=== PATIENT | female | born 1975 | race Caucasian/White ===

== ENCOUNTER 2019-07-04 15:38 | Inpatient (IN) | payer OTHER ==
[~2019-07-04] VITALS: Ht 170.2 cm; Wt 90.7 kg
[2019-07-04 15:43] VITALS: BP_SYST 143
--- NOTE | 2019-07-04 15:51 | NUR ---
Patient to ER bed 03 to gown for evaluation. Side rails up.
--- NOTE | 2019-07-04 15:55 | NUR ---
patient AOx4 with c/o dizziness, patient states she feels lightheaded/numbness to extremities upon standing since 10:30 this morning. patient denies recent fall, n/v/d/FERNANDEZ of any kind. patient states she smokes x1 pack a day. patient denies any other drugs at this time. patient has equal ekaterina strangth to all extremities. no slurred speech of any kind. no other complaint or injury at this time.
--- NOTE | 2019-07-04 16:05 | NUR ---
ER at bedside examining patient.
[2019-07-04] MEDS ORDERED: ASPIRIN 81 MG TAB.CHEW PO ONE (16:15)
[2019-07-04] MEDS ORDERED: NACL 0.9% 1,000 ML IV ONE (16:15)
[2019-07-04] MEDS ORDERED: MECLIZINE HCL 25 MG TABLET (ANITVERT) PO ONE (16:15)
--- NOTE | 2019-07-04 16:24 | NUR ---
Yovani mosscheyenne in [facility] - 07/04/19 at 1624 by [email or web address] patient is othostatic positive
--- NOTE | 2019-07-04 16:24 | NUR ---
orthostatic bp positive.
--- NOTE | 2019-07-04 16:29 | NUR ---
patient sent to CT
[2019-07-04 16:38] LABS: BASOPHILS # (AUTO) 0.1 K/uL (0.0-0.2); BASOPHILS % (AUTO) 0.3 % (0.0-2.0); EOSINOPHILS # (AUTO) 0.1 K/uL (0.0-0.4); EOSINOPHILS % (AUTO) 0.7 % (0.0-4.0); HEMATOCRIT 34.7 % (36-48); HEMOGLOBIN 10.7 g/dL (12.0-16.0); LYMPHOCYTES # (AUTO) 2.5 K/uL (1.0-5.5); LYMPHOCYTES % (AUTO) 14.8 % (20.5-51.5); MEAN CORPUSCULAR HEMOGLOBIN 22 pg (27-31); MEAN CORPUSCULAR HGB CONC 31 % (32-36); MEAN CORPUSCULAR VOLUME 71 fL (79.0-98.0); MONOCYTES # (AUTO) 0.7 K/uL (0.0-1.0); MONOCYTES % (AUTO) 4.1 % (1.7-9.3); NEUTROPHILS # (AUTO) 13.7 K/uL (1.8-7.7); NEUTROPHILS % (AUTO) 80.1 % (40.0-70.0); PLATELET COUNT (AUTO) 358 K/uL (130-430); RED BLOOD CELL COUNT(AUTO) 4.92 MIL/uL (4.2-6.2); RED CELL DISTRIBUTION WIDTH 19.5 % (9.0-15.0); WHITE BLOOD COUNT (AUTO) 17.1 K/uL (4.8-10.8)
[2019-07-04 16:44] LABS: ANION GAP 17 (5-15); CALCIUM 9.4 mg/dL (8.4-11.0); CHLORIDE 104 mmol/L (98-107); GFR AFRICAN AMERICAN 101 mL/min (>90); GLUCOSE 102 mg/dL (70-99); POTASSIUM 3.5 mmol/L (3.5-5.1); SODIUM SERUM 141 mmol/L (136-145); UREA NITROGEN, BLOOD 5 mg/dL (8-21)
[2019-07-04 16:49] LABS: ALANINE AMINOTRANSFERASE 26 U/L (12-78); ALBUMIN 4.1 g/dL (3.4-4.8); ALCOHOL, BLOOD 51 mg/dL (<10); ASPARTATE AMINOTRANSFERASE 23 U/L (10-37); TOTAL BILIRUBIN 0.3 mg/dL (0.0-1.0)
--- NOTE | 2019-07-04 17:00 | NUR ---
patient returned from CT in stable condition.
--- NOTE | 2019-07-04 17:00 | NUR ---
Medicated per MD orders. IVF infusing with no s/s of infiltration at this time. Will cont to monitor# 18 gauge angiocath placed to LAC. Use of asceptic technique. Opsite placed over site. Blood return noted. Blood for lab drawn from site. Flushed with 10 cc of normal saline. No evidence of infiltration noted. Patient tolerated well.
[2019-07-04 17:06] LABS: ACETAMINOPHEN < 1 ug/mL (1-30)
[2019-07-04 17:06] LABS: BILIRUBIN,URINE NEGATIVE (NEGATIVE); BLOOD, URINE 1+ (NEGATIVE); CLARITY/URINE CLEAR (CLEAR); COLOR,URINE YELLOW (YELLOW); GLUCOSE,URINE NEGATIVE (NEGATIVE); KETONES,URINE NEGATIVE (NEGATIVE); LEUKOCYTE ESTERASE ,URINE NEGATIVE (NEGATIVE); NITRITE, URINE NEGATIVE (NEGATIVE); PROTEIN URINE NEGATIVE (NEGATIVE); UROBILINOGEN,URINE 0.2 (0.2-1.0)
[2019-07-04] MEDS ORDERED: NACL 0.9% 2,000 ML IV ONE (17:15)
[2019-07-04] MEDS ORDERED: PIPERACILLIN/TAZO 3.375 GM in NS 50 ML IV ONE (17:15)
[2019-07-04 17:16] LABS: URINE AMPHETAMINE POSITIVE (NEG <=500)
[2019-07-04 17:17] LABS: BARBITURATE, URINE NEGATIVE (NEG <=200); BENZODIAZEPINE, URINE NEGATIVE (NEG <=150); CANNABINOID, URINE NEGATIVE (NEG <=50); COCAINE, URINE NEGATIVE (NEG <=150); METHAMPHETAMINES SCREEN,URINE POSITIVE (NEG <=500); OPIATE, URINE NEGATIVE (NEG <=100); PHENCYCLIDINE SCREEN,URINE NEGATIVE (NEG <=25); UR TRICYCLIC ANTIDEPRESSANTS NEGATIVE (NEG <=300); URINE METHADONE NEGATIVE (NEG <=200); URINE OXYCODONE SCREEN NEGATIVE (NEG <=100); URINE PROPOXYPHENE SCREEN NEGATIVE (NEG <=300)
[2019-07-04 17:22] LABS: BACTERIA,URINE FEW /HPF (None Seen); WBC,URINE NONE SEEN /HPF (0-3)
[2019-07-04 17:23] LABS: MUCUS,URINE None Seen /LPF (None Seen)
[2019-07-04] MEDS ORDERED: ONDANSETRON HCL 4 MG/2 ML VIAL IVP PRN (17:30)
[2019-07-04] MEDS ORDERED: PIPERACILLIN/TAZOBACTAM 3.375 GM/VIAL (ZOSYN) IV ONE (17:31)
--- NOTE | 2019-07-04 17:35 | NUR ---
patient denies taking medication
--- NOTE | 2019-07-04 17:47 | NUR ---
ADMISSION NOTE Received patient from ER via [facility], received report from Elma MITTAL. Patient admitted with diagnosis of ORTHOSTATIC HYPOTENSION/DEHYDRATION. Patient oriented to hospital routine, call light, toileting and safety-patient verbalized understanding.
[2019-07-04 17:56] LABS: AMYLASE 61 U/L (0-100); LIPASE 172 U/L (73-393)
--- NOTE | 2019-07-04 17:56 | NUR ---
Patient will be admitted to care of [facility]. Admitted to tele unit. Will go to room 117A. Belongings list completed. Summary report printed. Report will be given at bedside.
[2019-07-04] MEDS: ACETAMINOPHEN 325 MG TABLET PO PRN (18:07)
[2019-07-04 18:08] VITALS: BP_SYST 155
--- NOTE | 2019-07-04 18:51 | NUR ---
CLOSING NOTES: PATIENT AWAKE IN BED. ALERT AND ORIENTED x4 AND VERBAL. FAMILY AT BEDSIDE. NO SIGNS OF DISTRESS OR SHORTNESS OF BREATH NOTED. PATIENT IS TOLERATING OXYGEN AT ROOM AIR. SAFETY AND FALL PRECAUTIONS ARE IN PLACE. BED LOCKED IN LOWEST POSITION WITH CALL LIGHT IN REACH. WILL ENDORSE PATIENT TO ONCOMING JOB PUTTER UP AND TICKET PREPARER NURSE.
[2019-07-04 20:24] LABS: HCG,QUAL RESULT NEGATIVE (NEGATIVE)
[2019-07-04] MEDS ORDERED: FOLIC ACID 1 MG, THIAMINE HCL 100 MG, MAGNESIUM SULFATE 1 GM, MVI 10 ML in NACL 0.9% 1,... IV SCH (20:45)
[2019-07-04 20:50] VITALS: BP_SYST 137
[2019-07-04] MEDS ORDERED: MULTIVITAMINS TAB 1 TABLET PO SCH (21:00)
[2019-07-04] MEDS: LORazepam 1 MG TABLET PO SCH (21:27)
[2019-07-04] MEDS ORDERED: cefTRIAXone 1 GM IVPB PREMIX 50 ML IV ONE (21:40)
[2019-07-04] MEDS: cefTRIAXone 1 GM IVPB PREMIX 50 ML IV SCH (21:49)
--- NOTE | 2019-07-04 23:15 | NUR ---
ZOFRAN 4 MG IVP administer for general NAUSEA & HELPFUL .
--- NOTE | 2019-07-04 23:45 | NUR ---
LORAZEPAM 1 MG PO administer as ordered for anxiety & helpful .
--- NOTE | 2019-07-05 | NUR ---
TYLENOL 650 MG PO administer for general pain 01/03 & helpful , patient Resting .
[2019-07-05 00:28] VITALS: BP_SYST 140
[2019-07-05] MEDS: ACETAMINOPHEN 325 MG TABLET PO PRN ×3 (00:43→22:22)
--- NOTE | 2019-07-05 04:45 | NUR ---
Hourly Rounding patient Resting HOB elevated verbally Responsive friend at the bedside chest movement symmetrical call patel with patient .
--- NOTE | 2019-07-05 04:50 | NUR ---
Patient ambulates with steady gait BRP did urinate as needed , back to bed no SOB call patel with patient activity tolerated .
--- NOTE | 2019-07-05 04:51 | NUR ---
ROCEPHIN 1 GM IVPB administer as ordered no s/sx of ALLERGIC reaction noted skin Rash Free dry also warm .
[2019-07-05 05:44] LABS: BASOPHILS # (AUTO) 0.1 K/uL (0.0-0.2); BASOPHILS % (AUTO) 0.6 % (0.0-2.0); EOSINOPHILS # (AUTO) 0.4 K/uL (0.0-0.4); HEMATOCRIT 29.9 % (36-48); HEMOGLOBIN 9.2 g/dL (12.0-16.0); LYMPHOCYTES % (AUTO) 29.5 % (20.5-51.5); MEAN CORPUSCULAR HEMOGLOBIN 22 pg (27-31); MEAN CORPUSCULAR HGB CONC 31 % (32-36); MEAN CORPUSCULAR VOLUME 71 fL (79.0-98.0); MONOCYTES # (AUTO) 0.6 K/uL (0.0-1.0); MONOCYTES % (AUTO) 5.6 % (1.7-9.3); NEUTROPHILS % (AUTO) 60.3 % (40.0-70.0); PLATELET COUNT (AUTO) 285 K/uL (130-430); RED CELL DISTRIBUTION WIDTH 19.8 % (9.0-15.0)
[2019-07-05] MEDS: LORazepam 1 MG TABLET PO SCH ×3 (06:16→22:22)
--- NOTE | 2019-07-05 06:35 | NUR ---
Patient Reminded again that stool sample is needed , Hat placed in Rest room patient alert & awake .
--- NOTE | 2019-07-05 06:36 | NUR ---
LORAZEPAM 1 MG PO GIVEN ORDERED anxiety & helpful .
[2019-07-05 06:37] LABS: ANION GAP 13 (5-15); CALCIUM 8.4 mg/dL (8.4-11.0); CHLORIDE 109 mmol/L (98-107); CREATININE 0.75 mg/dL (0.55-1.30); GLUCOSE 90 mg/dL (70-99); POTASSIUM 3.4 mmol/L (3.5-5.1); SODIUM SERUM 143 mmol/L (136-145); UREA NITROGEN, BLOOD 6 mg/dL (8-21)
[2019-07-05 06:46] LABS: PHOSPHORUS 4.2 mg/dL (2.7-4.5)
[2019-07-05 06:49] LABS: GFR AFRICAN AMERICAN 109 mL/min (>90)
[2019-07-05 07:19] LABS: TOTAL IRON BIND. CAPACITY 438 ug/dL (250-450)
[2019-07-05 07:46] LABS: CHOLESTEROL 150 mg/dL (<200); TRIGLYCERIDES 131 mg/dL (30-150)
[2019-07-05 07:47] LABS: HDL CHOLESTEROL 36 mg/dL (>55); LDL CHOLESTEROL 95 mg/dL (<100)
[2019-07-05 07:56] VITALS: BP_SYST 145
--- NOTE | 2019-07-05 07:57 | NUR ---
OPENING NOTES: RECEIVED PATIENT FROM GUEST SERVICES REPRESENTATIVE NURSE. PATIENT IS AWAKE IN BED. ALERT AND ORIENTED x4. PATIENT DENIES ANY PAIN AT THE MOMENT. NO SIGNS OF DISTRESS OR SHORTNESS OF BREATH NOTED. SAFETY PRECAUTIONS ARE IN PLACE. BED LOCKED IN LOWEST POSITION WITH CALL LIGHT IN REACH. WILL CONTINUE TO MONITOR PATIENT FOR ANY CHANGES.
[2019-07-05] MEDS ORDERED: FOLIC ACID 1 MG, THIAMINE HCL 100 MG, MAGNESIUM SULFATE 1 GM, MVI 10 ML in NACL 0.9% 1,... IV ONE (08:00)
[2019-07-05] MEDS: NEPHROVITE, (FOLIC ACID/VITAMIN B COMP W-C 1 TAB) PO SCH (09:25)
[2019-07-05] MEDS: THIAMINE HCL 100 MG, MAGNESIUM SULFATE 1 GM in NS 100 ML IV SCH (09:25)
[2019-07-05] MEDS: MULTIVITAMINS TAB 1 TABLET PO SCH (09:25)
[2019-07-05] MEDS: FOLIC ACID 1 MG, MVI 10 ML in NACL 0.9% 1,000 ML IV SCH (09:26)
--- NOTE | 2019-07-05 10:40 | NUR ---
RN ROUNDS: PATIENT JUST CAME BACK IN FROM SMOKING OUTSIDE. PATIENT IS AWAKE IN BED. IV SITE IS NO LONGER PATENT. IV CATHETER INTACT WITH NO ACTIVE BLEEDING NOTED. WILL ATTEMPT TO PUT ANOTHER IV IN. PATIENT DENIES ANY PAIN AT THE MOMENT. NO SIGNS OF DISTRESS OR SHORTNESS OF BREATH NOTED. WILL CONTINUE TO MONITOR PATIENT FOR ANY CHANGES.
[2019-07-05] MEDS ORDERED: POTASSIUM CHLORIDE 20 MEQ TAB.PRT.SR PO ONE (10:45)
--- NOTE | 2019-07-05 10:45 | NUR ---
MD ROUNDS DR SHADI KISER, AWARE OF PATIENT'S CONDITION, NEW ORDERS GIVEN FOR POTASSIUM.
--- NOTE | 2019-07-05 11:19 | NUR ---
IV REINSERTION: IV SUCCESSFUL IN RIGHT FOREARM 22G. ASEPTIC TECHNIQUE USED. SUCCESSFUL AFTER THREE ATTEMPTS. PATIENT TOLERATED IT WELL. IV SITE PATENT WITH NO SIGNS OF INFILTRATION AND FLUSHES. NO ACTIVE BLEEDING NOTED. RUNNING IV FLUIDS ORDERED. WILL CONTINUE TO MONITOR.
--- NOTE | 2019-07-05 12:16 | NUR ---
Strainer Mill Operator: Pt. positive for etho, meth, and amphetamines. SPONGE CLIPPER met with pt. bedside, introduced self and asked pt. is she would like to continue with this interview and the asking of some personal questions with her two visitors in the room. Pt. stated she was fine and allowed them to stay. They were her two sisters, Marlene Bean and Marilyn Puckett . Pt. Pt. was able to easily participate in this interview. She stated she was at hospital due to feeling dizzy. She stated when asked, "there were no other reasons and the Dr. is trying to find out why". Pt. stated she lives at home with her . She has four kids ages 24,23,21 and 15 years. Pt. works at [employer] and stated she has the support of her family. SPONGE CLIPPER went through a discharge summary and continued to ask additional questions. SPONGE CLIPPER shared with pt. her labs came back positive for the etoh, meth and amphet. Pt. stated she only drank 10 beers and smoked pot. When asked pt. stated she had never been Dx. with any type of mental health issues. She stated she has felt depressed at times, but that it has not been an issue. Pt. stated it was ok for SPONGE CLIPPER to leave some resources such as Substance Abuse and added her insurance can activate mental health services. SPONGE CLIPPER added, her therapist by law has to keep the info she shares private and not share with anyone. Lastly, it was explained to pt. what a durable power of attny was and a form was left with her. Pt. thanked SPONGE CLIPPER.
--- NOTE | 2019-07-05 12:16 | NUR ---
SS Note: CHECK INSPECTOR received a call from RN who stated that patient's spouse needed a certificate that spouse is confined in the hospital; request verified. CHECK INSPECTOR provided pt with a letter of confinement.
[2019-07-05 12:25] VITALS: BP_SYST 146
--- NOTE | 2019-07-05 12:30 | NUR ---
RN ROUNDS: PATIENT IS AWAKE IN BED EATING LUNCH. FAMILY AT BEDSIDE. PATIENT DENIES ANY PAIN AT THE MOMENT. NO SIGNS OF DISTRESS OR SHORTNESS OF BREATH NOTED. PATIENT IN STABLE CONDITION. WILL CONTINUE TO MONITOR PATIENT FOR ANY CHANGES.
[2019-07-05] MEDS ORDERED: SOD FERRIC GLUC COMPLEX/SUC 125 MG in NS 100 ML IV ONE (13:00)
--- NOTE | 2019-07-05 14:30 | NUR ---
RN ROUNDS: PATIENT IS AWAKE AND ALERT IN BED. PATIENT DENIES ANY PAIN AT THE MOMENT. NO SIGNS OF DISTRESS OR SHORTNESS OF BREATH NOTED. IV SITE PATENT WITH NO SIGNS OF INFILTRATION. PATIENT IN STABLE CONDITION. SAFETY PRECAUTIONS ARE IN PLACE. WILL CONTINUE TO MONITOR PATIENT FOR ANY CHANGES.
--- NOTE | 2019-07-05 16:20 | NUR ---
RN ROUNDS: PATIENT IS ASLEEP IN BED. NO SIGNS OF DISTRESS OR SHORTNESS OF BREATH NOTED. PATIENT IN STABLE CONDITION. WILL CONTINUE TO MONITOR PATIENT FOR ANY CHANGES.
[2019-07-05 16:35] VITALS: BP_SYST 160
[2019-07-05 16:46] VITALS: BP_SYST 123; BP_SYST 137; BP_SYST 149
--- NOTE | 2019-07-05 18:42 | NUR ---
CLOSING ROUNDS: PATIENT IS AWAKE AND ALERT x4 IN BED. FAMILY AT BEDSIDE. PATIENT DENIES ANY PAIN AT THE MOMENT. NO SIGNS OF DISTRESS OR SHORTNESS OF BREATH NOTED. IV SITE IS PATENT WITH NO SIGNS OF INFILTRATION. PATIENT IN STABLE CONDITION. SAFETY AND FALL PRECAUTIONS ARE IN PLACE. BED LOCKED IN LOWEST POSITION WITH CALL LIGHT IN REACH. WILL ENDORSE PATIENT TO FRONT SIGHT ATTACHER NURSE.
--- NOTE | 2019-07-05 19:15 | NUR ---
PM SHIFT ASSESSMENT Pt is alert and oriented. Pt is on RA, RR even and unlabored. IV to right arm, no signs of infiltration noted. Skin warm and dry. Family at bedside. Safety precautions in place, call light within reach. Will continue to monitor.
[2019-07-05 20:00] VITALS: BP_SYST 149
--- NOTE | 2019-07-05 20:25 | NUR ---
Pt out to smoking area with KYRIE Reddy. VSS.
[2019-07-05] MEDS: cefTRIAXone 1 GM IVPB PREMIX 50 ML IV SCH (20:28)
--- NOTE | 2019-07-05 20:40 | NUR ---
Pt back from smoking area. Pt in bed. No signs of acute distress noted. Call light within reach. Will continue to monitor.
[2019-07-06 00:30] VITALS: BP_SYST 123
--- NOTE | 2019-07-06 02:30 | NUR ---
Pt left room while RN was on lunch break. Pt found in cafeteria with significant other and smelled of cigarettes. Pt educated that all patients are not allowed in cafeteria and if she would like to leave her room she must first check in with her nurse and should be monitored on the tele at all times. Pt also educated that smoking times are over until morning. Pt agrees and understands. Will continue to monitor.
[2019-07-06 04:47] LABS: CALCIUM 8.4 mg/dL (8.4-11.0); CREATININE 0.68 mg/dL (0.55-1.30); PHOSPHORUS 4.8 mg/dL (2.7-4.5); POTASSIUM 4.1 mmol/L (3.5-5.1)
[2019-07-06 04:53] LABS: BASOPHILS # (AUTO) 0.1 K/uL (0.0-0.2); BASOPHILS % (AUTO) 0.6 % (0.0-2.0); EOSINOPHILS # (AUTO) 0.4 K/uL (0.0-0.4); EOSINOPHILS % (AUTO) 4.6 % (0.0-4.0); HEMATOCRIT 29.1 % (36-48); LYMPHOCYTES # (AUTO) 2.1 K/uL (1.0-5.5); LYMPHOCYTES % (AUTO) 21.8 % (20.5-51.5); MEAN CORPUSCULAR HEMOGLOBIN 22 pg (27-31); MEAN CORPUSCULAR HGB CONC 31 % (32-36); MEAN CORPUSCULAR VOLUME 72 fL (79.0-98.0); MONOCYTES # (AUTO) 0.7 K/uL (0.0-1.0); MONOCYTES % (AUTO) 7.1 % (1.7-9.3); NEUTROPHILS # (AUTO) 6.3 K/uL (1.8-7.7); NEUTROPHILS % (AUTO) 65.9 % (40.0-70.0); PLATELET COUNT (AUTO) 249 K/uL (130-430); RED BLOOD CELL COUNT(AUTO) 4.03 MIL/uL (4.2-6.2); WHITE BLOOD COUNT (AUTO) 9.5 K/uL (4.8-10.8)
[2019-07-06] MEDS: LORazepam 1 MG TABLET PO SCH (06:13)
--- NOTE | 2019-07-06 06:15 | NUR ---
Pt sleeping in bed. No signs of SOB or acute distress noted. Will continue to monitor.
--- NOTE | 2019-07-06 07:22 | NUR ---
ENDORSEMENT Pt care endorsed to dayshift RN using nursing SBAR.
--- NOTE | 2019-07-06 07:40 | NUR ---
OPENING NOTES: RECEIVED PATIENT FROM DATA MANAGEMENT MANAGER NURSE. PATIENT IS ASLEEP IN BED. NO SIGNS OF DISTRESS OR SHORTNESS OF BREATH NOTED. IV SITE IS PATENT WITH NO SIGNS OF INFILTRATION. PATIENT IN STABLE CONDITION. SAFETY AND FALL PRECAUTIONS ARE IN PLACE. BED LOCKED IN LOWEST POSITION WITH CALL LIGHT IN REACH. WILL CONTINUE TO MONITOR PATIENT FOR ANY CHANGES.
[2019-07-06 08:18] VITALS: BP_SYST 111
[2019-07-06] MEDS: FOLIC ACID 1 MG, MVI 10 ML in NACL 0.9% 1,000 ML IV SCH (09:00)
[2019-07-06] MEDS: THIAMINE HCL 100 MG, MAGNESIUM SULFATE 1 GM in NS 100 ML IV SCH (09:00)
--- NOTE | 2019-07-06 09:10 | NUR ---
CALL PAGED DR HSU IN REGARDS TO D/C OF PT, PT HAS QUESTIONS ABOUT D/C AND DOES NOT WANT TO LEAVE UNTIL SHE IS SEEN BY THE DOCTOR TODAY, WROTE ORDER FOR D/C THIS AM AT 0630. AWAITING CALL BACK. Addendum: 07/06/19 at 0951 by Kayla Celestin RN SPOKE WITH AND SHE WILL COME IN AND SEE PT AROUND 10 AM, PT RECEIVED BANANA BAG YESTERDAY WITH THIAMINE, PER NO NEED TO GIVE THIS AGAIN TODAY.
[2019-07-06] MEDS: NEPHROVITE, (FOLIC ACID/VITAMIN B COMP W-C 1 TAB) PO SCH (09:19)
[2019-07-06] MEDS: MULTIVITAMINS TAB 1 TABLET PO SCH (09:19)
[2019-07-06] MEDS: ACETAMINOPHEN 325 MG TABLET PO PRN (09:20)
[2019-07-06 09:56] VITALS: BP_SYST 117
--- NOTE | 2019-07-06 10:06 | NUR ---
RN ROUNDS: PATIENT AWAKE AND ALERT x4 LAYING DOWN IN BED. PATIENT DENIES ANY PAIN AT THE MOMENT. NO SIGNS OF DISTRESS OR SHORTNESS OF BREATH NOTED. PATIENT STATES "JUST WAITING TO SEE THE DOCTOR SO I CAN GO HOME". PATIENT IN STABLE CONDITION. SAFETY AND FALL PRECAUTIONS ARE IN PLACE. BED LOCKED IN LOWEST POSITION WITH CALL LIGHT IN REACH. WILL CONTINUE TO MONITOR PATIENT FOR ANY CHANGES.
[2019-07-06] MEDS ORDERED: FERR140T2 PO (11:04)
--- NOTE | 2019-07-06 12:30 | NUR ---
D/C Patient Patient given medication reconciliation form and D/C instructions. Exit Care provided. Patient verbalized understanding. MD discussed with patient the results and treatment provided. Patient taken outside via wheelchair. Patient in stable condition, ID band removed. IV catheter removed, intact and dressing applied, no active bleeding. Rx of FERROUS SULFATE given. Patient educated on pain management. All belongings sent with patient.
[2019-07-06 12:47] VITALS: BP_SYST 119
== END 2019-07-06 12:30 | disposition home or self-care (01) | DRG 74 ==
LOC: SED 15:38 → STU 17:16
PROVIDERS: ADMIT Family Medicine; ATTEND Family Medicine
DX: G90.8 Other disorders of autonomic nervous system (principal); R65.10 Systemic inflammatory response syndrome (SIRS) of non-infectious origin without acute organ dysfunction; E87.2 Acidosis; E87.6 Hypokalemia; F19.10 Other psychoactive substance abuse, uncomplicated; E86.0 Dehydration; D50.9 Iron deficiency anemia, unspecified; F10.10 Alcohol abuse, uncomplicated; I95.1 Orthostatic hypotension; F15.10 Other stimulant abuse, uncomplicated; E66.9 Obesity, unspecified; Z68.31 Body mass index [BMI] 31.0-31.9, adult
CPT/HCPCS: 36415; 70450-TC; 71045; 71046-TC; 80048; 80053; 80061; 80307; 81000-TC; 82150-TC; 83540-TC; 83550-TC; 83605; 83690-TC; 83735-TC; 84100-TC; 84484; 84703; 85025; 87040-TC; 93005; 93306; 96361; 96365; 99285; G0378; G0480; G0481; G0482; J0696; J2405; J2543; J2916; J3411; J3475; J3490; J7030; J7040; J8597

== ENCOUNTER 2020-05-24 17:14 | Emergency (ER) | payer OTHER, SELFPAY ==
[~2020-05-24] VITALS: Ht 170.2 cm; Wt 99.8 kg
[~2020-05-24 17:14] MED LIST: FERR140T2 PO
[2020-05-24 17:19] VITALS: BP_SYST 150
--- NOTE | 2020-05-24 17:19 | NUR ---
Pt placed on tent
--- NOTE | 2020-05-24 17:20 | NUR ---
Patient came from home for evaluation of COVID-19 symptoms. A family member that lives with them tested positive yesterday.
--- NOTE | 2020-05-24 17:50 | NUR ---
ER in tent examining patient.
--- NOTE | 2020-05-24 19:06 | NUR ---
Report given to KYRIE Moon for continuation of care.
[2020-05-24 19:37] VITALS: BP_SYST 150
--- NOTE | 2020-05-24 19:38 | NUR ---
Patient given written and verbal discharge instructions and verbalizes understanding. ER MD discussed with patient the results and treatment provided. Patient in stable condition. ID arm band removed. Rx of Dexamethasone,Zinc sulfate, Hydroxychloroquine and Azithromycin given. Patient educated on pain management and to follow up with PMD. Pain Scale 0/10 . Opportunity for questions provided and answered. Medication side effect fact sheet provided.
== END 2020-05-24 19:37 | disposition home or self-care (01) ==
LOC: SED 17:14
DX: R50.9 Fever, unspecified (principal); R43.0 Anosmia; R43.2 Parageusia; F17.200 Nicotine dependence, unspecified, uncomplicated; Z20.828 Contact with and (suspected) exposure to other viral communicable diseases
CPT/HCPCS: 71045; 99283